=== PATIENT | male | born 1970 | race Caucasian/White ===

== ENCOUNTER 2019-12-27 23:04 | Emergency (ER) | payer SELFPAY ==
[~2019-12-27] VITALS: Ht 190.5 cm; Wt 81.6 kg
[2019-12-27 23:12] VITALS: BP 132/91
== END 2019-12-27 23:30 ==
LOC: ER 23:06
DX: F10.229 Alcohol dependence with intoxication, unspecified (principal); D17.0 Benign lipomatous neoplasm of skin and subcutaneous tissue of head, face and neck; Y90.9 Presence of alcohol in blood, level not specified; F17.210 Nicotine dependence, cigarettes, uncomplicated; V48.5XXA Car driver injured in noncollision transport accident in traffic accident, initial encounter; Y93.I9 Activity, other involving external motion; Y92.89 Other specified places as the place of occurrence of the external cause; Y99.8 Other external cause status